=== PATIENT | female | born 1940 | race Caucasian/White ===

== ENCOUNTER 2017-09-04 16:09 | Emergency (ER) | payer MEDICARE ==
[~2017-09-04] VITALS: Ht 157.5 cm; Wt 77.0 kg
[2017-09-04 16:12] VITALS: BP 138/65; PULSE 67; RESP 16; TEMP 98.3; O2SAT 95
[2017-09-04] MEDS ORDERED: SODIUM CHLOR 0.9% 1000 ML INJ 1,000 ML IV SCH (16:34)
[2017-09-04 16:38] VITALS: RESP 16; O2SAT 97
[2017-09-04] MEDS ORDERED: ONDANSETRON HCL 4 MG/2 ML VIAL IVP ONE (16:45)
[2017-09-04] MEDS ORDERED: SODIUM CHLORIDE 0.9% FLUSH 10 ML FLUSH IV FLUSH PRN (16:45)
[2017-09-04] MEDS ORDERED: cefTRIAXone INJ 1,000 MG in SODIUM CHLORIDE 0.9% INJ 100 ML IV ONE (16:45)
--- NOTE | 2017-09-04 16:45 | PD ---
HPI Chief Complaint: Allergic/Adverse Reaction Time Seen by Provider: 16:34 Travel History International Travel<30 days: No Contact w/Intl Traveler<30days: No Traveled to known affect area: No History of Present Illness HPI The patient 76 years old. She was diagnosed with urinary tract infection yesterday at a urgent care center. She was prescribed Macrobid and then went home and took it along with Pyridium and Diflucan. This morning she began vomiting and has vomited all day long. She believes it may be due to side effects or Macrobid for potentially the urinary tract infection. She's had no fever. She does have pain in the epigastrium which she attributes to recurrent vomiting. She reports typically [employer] works for her and that she called the urgent care office and they called in a prescription for Cipro and that she has available to her. PFSH Past Medical History Hx Anticoagulant Therapy: No Diabetes: No ?: Not Social History Tobacco Use: No Allergies-Medications (Allergen,Severity, Reaction): Coded Allergies: No Known Allergies (Unverified , 09/04/17) Reported Meds & Prescriptions Reported Meds & Active Scripts Active Phenergan (Promethazine HCl) 25 Mg Tablet 25 Mg PO Q6H PRN Reported Pyridium (Phenazopyridine HCl) 100 Mg Tab 100 Mg PO Q8H PRN Macrobid (Nitrofurantoin Monoh/Nitrofur Macro) 100 Mg Cap 100 Mg PO BID Estradiol 0.5 Mg Tab 0.5 Mg PO DAILY Celexa (Citalopram Hydrobromide) 20 Mg Tab 30 Mg PO DAILY Cipro (Ciprofloxacin HCl) 500 Mg Tab 500 Mg PO BID Review of Systems Except as stated in HPI: all other systems reviewed are Neg General / Constitutional: No: Fever Gastrointestinal: Positive: Nausea, Vomiting Physical Exam Narrative GENERAL: 76-year-old female well-nourished well-developed no acute distress SKIN: Warm and dry. HEAD: Atraumatic. Normocephalic. EYES: Pupils equal and round. No scleral icterus. No injection or drainage. ENT: No nasal bleeding or discharge. Mucous membranes pink and moist. NECK: Trachea midline. No JVD. CARDIOVASCULAR: Regular rate and rhythm. RESPIRATORY: No accessory muscle use. Clear to auscultation. Breath sounds equal bilaterally. GASTROINTESTINAL: Abdomen soft, non-tender, nondistended. Hepatic and splenic margins not palpable. MUSCULOSKELETAL: Extremities without clubbing, cyanosis, or edema. No obvious deformities. NEUROLOGICAL: Awake and alert. No obvious cranial nerve deficits. Motor grossly within normal limits. Five out of 5 muscle strength in the arms and legs. Normal speech. PSYCHIATRIC: Appropriate mood and affect; insight and judgment normal. Data Data Last Documented VS Vital Signs Date Time Temp Pulse Resp B/P (MAP) Pulse Ox O2 Delivery O2 Flow Rate FiO2 09/04/17 16:38 64 16 96 Room Air 09/04/17 16:12 98.3 138/65 (89) Vital signs reviewed Orders Orders Iv Access Insert/Monitor (09/04/17 16:34) Ecg Monitoring (09/04/17 16:34) Oximetry (09/04/17 16:34) Ondansetron Inj (Zofran Inj) (09/04/17 16:45) Sodium Chlor 0.9% 1000 Ml Inj (Ns 1000 M (09/04/17 16:34) Sodium Chloride 0.9% Flush (Ns Flush) (09/04/17 16:45) Ceftriaxone Inj (Rocephin Inj) (09/04/17 16:45) Ed Discharge Order (09/04/17 17:21) MDM Medical Decision Making Medical Screen Exam Complete: Yes Emergency Medical Condition: Yes Medical Record Reviewed: Yes Differential Diagnosis Constipation, Gastritis, Acute Cholecystitis, Biliary Colic, Pancreatitis, BROOKS , Hepatitis, Bowel Obstruction, Cystitis, Mesenteric Ischemia, AAA, Appendicitis , Renal Stone/Hydronephrosis, GERD, perforated viscous Narrative Course Patient will receive IV fluids and antiemetics and a dose of Rocephin. Discharge home afterward with plan for follow up with pmd. Pt agreeable with plan and reports feeling much better at time of reassessment at 1730. Diagnosis Primary Impression: UTI (urinary tract infection) Qualified Codes: N30.00 - Acute cystitis without hematuria Additional Impression: Nausea & vomiting Qualified Codes: R11.2 - Nausea with vomiting, unspecified Referrals: Primary Care Physician 2 days Med/Other Pt SpecificInfo: Prescription(s) given Scripts Promethazine (Phenergan) 25 Mg Tablet 25 MG PO Q6H Y for NAUSEA OR VOMITING, #10 TAB 0 Refills Prov: Flakito Jenkins MD 09/04/17 Disposition: 01 DISCHARGE HOME Condition: Stable Flakito Jenkins MD Sep 04, 2017 16:45
[2017-09-04] MEDS ORDERED: CIPR-9 PO (16:46)
[2017-09-04] MEDS ORDERED: ESTR0.5T PO (16:46)
[2017-09-04] MEDS ORDERED: MACR100C2 PO (16:46)
[2017-09-04] MEDS ORDERED: CELE20TA PO (16:46)
[2017-09-04] MEDS ORDERED: PHEN0.4T PO (16:46)
[2017-09-04] MEDS ORDERED: PROM25TA10 PO (16:57)
[2017-09-04 18:05] VITALS: BP 131/70
== END 2017-09-04 18:39 | disposition home or self-care (01) ==
LOC: PHED 16:09 → EDBD 16:09 → PHED 18:39
DX: N30.00 Acute cystitis without hematuria (principal)
CPT/HCPCS: 96365; 96375; 99284; J0696; J2405; J7030

== ENCOUNTER 2018-09-23 08:08 | Observation (INO) ==
[2018-09-23] MEDS ORDERED: Sod Chloride 0.9% Inj 1,000 ML IV.SIG ONE (08:39)
[2018-09-23 08:59] LABS: Baso % (Auto) 0.8 % (0.0-2.0); Eos % (Auto) 0.6 % (0.0-4.0); Hematocrit 44.4 % (35.0-46.0); Hemoglobin 14.9 gm/dL (11.6-15.3); Lymph # (Auto) 1.9 th/mm3 (1.0-4.8); Lymph % (Auto) 31.5 % (9.0-44.0); Mean Corpuscular HGB Conc 33.5 % (32.0-36.0); Mean Corpuscular Hemoglobin 28.4 pg (27.0-34.0); Mean Corpuscular Volume 84.8 fL (80.0-100.0); Mean Platelet Volume 8.4 fL (7.0-11.0); Mono # (Auto) 0.2 th/mm3 (0.0-0.9); Mono % (Auto) 3.9 % (0.0-8.0); Neut % (Auto) 63.2 % (16.0-70.0); Platelet Count 204 th/mm3 (150-450); Red Blood Count 5.24 mil/mm3 (4.00-5.30); Red Cell Distribution Width 13.3 % (11.6-17.2); White Blood Count 6.1 th/mm3 (4.0-11.0)
--- NOTE | 2018-09-23 09:04 | XR ---
EXAM DATE: 09/23/2018 9:02 AM EST AGE/SEX: 77 years / Female INDICATIONS: . Vertigo, acid reflux with chest pain CLINICAL DATA: This is the patient's initial encounter. Patient reports that signs and symptoms have been present for 2 weeks and indicates a pain score of 6/10. MEDICAL/SURGICAL HISTORY: None. None. COMPARISON: No prior exams available for comparison. FINDINGS: PA and lateral views of the chest demonstrate the lungs to be symmetrically aerated without evidence of mass, infiltrate or effusion. The cardiomediastinal contours are unremarkable. Osseous structures are intact. CONCLUSION: No acute intrathoracic disease. Electronically signed by: Ramo Ngo MD 09/23/2018 9:03 AM EST
[2018-09-23 09:08] LABS: Chloride 105 meq/L (98-107); Potassium 3.4 meq/L (3.5-5.1); Sodium 140 meq/L (136-145)
[2018-09-23 09:11] LABS: Anion Gap 8 meq/L (5-15); Calcium 8.7 mg/dL (8.5-10.1); Carbon Dioxide 26.6 meq/L (21.0-32.0); Glucose,Random 106 mg/dL (74-106)
[2018-09-23 09:12] LABS: Blood Urea Nitrogen 31 mg/dL (7-18)
[2018-09-23 09:15] LABS: Glomerular Filtration Rate 40 mL/min (>89)
[2018-09-23] MEDS ORDERED: Sodium Chlor 0.9% Inj 500 ML IV.SIG SCH (10:00)
--- NOTE | 2018-09-23 10:34 | CT ---
EXAM DATE: 09/23/2018 10:31 AM EST AGE/SEX: 77 years / Female INDICATIONS: Dizziness CLINICAL DATA: This is the patient's initial encounter. Patient reports that signs and symptoms have been present for 1 week and indicates a pain score of 3/10. MEDICAL/SURGICAL HISTORY: Hypertension. Hysterectomy. Cholecystectomy. RADIATION DOSE: 52.90 CTDI (mGy) COMPARISON: No prior exams available for comparison. TECHNIQUE: CT of the head without contrast. Using automated exposure control and adjustment of the mA and/or kV according to patient size, radiation dose was kept as low as reasonably achievable to ob tain optimal diagnostic quality images. DICOM format image data is available electronically for revi ew and comparison. FINDINGS: Cerebrum: The ventricles are normal for age. No evidence of midline shift, mass lesion, hemorrhage or acute infarction. No extraaxial fluid collections are seen. Posterior Fossa: The cerebellum and brainstem are intact. The 4th ventricle is midline. The cerebe llopontine angle is unremarkable. Extracranial: The visualized portion of the orbits is intact. Skull: The calvaria is intact. No evidence of skull fracture. CONCLUSION: 1. Unremarkable exam for patient's age. . Electronically signed by: Ramo Ngo MD 09/23/2018 10:33 AM EST
[2018-09-23] MEDS ORDERED: Acetaminophen 325 MG Tablet PO PRN (12:18)
[2018-09-23] MEDS ORDERED: Bisacodyl 10 MG Supp RECTAL PRN (12:18)
[2018-09-23] MEDS ORDERED: Sod Chloride 0.9% Inj 1,000 ML IV.CONT SCH (12:30)
[2018-09-23] MEDS ORDERED: CHLORTHALIDONE 50 MG PO SCH (12:30)
--- NOTE | 2018-09-23 12:30 | ED ---
HPI General Chief Complaint: Dizziness Stated Complaint: possible vertigo/dizziness x 1.5 week/nausea Time Seen by Provider: 09/23/18 08:21 Source: patient Mode of arrival: ambulatory Limitations: no limitations History of Present Illness HPI Narrative: Patient is a 77-year-old female, past medical history significant for hypertension, depression with recent change in her antidepressant medications, and vertigo who presents with complaint of worsening vertigo. She states that this episode of dizziness has been going on for the last 2 weeks and occurs when her head stays still and when she turns it. She has had nausea and vomiting associated with it and this morning began to have some palpitations as well. No chest pain or shortness of breath. No fever nor chills. No diarrhea. No abdominal pain. She states that in some ways this feels similar to previous vertigo episodes but does feel very different as well. No changes in speech, swallowing, visual field deficits. No numbness nor weakness. No difficulty walking. complaint: Reports dizziness Onset (ago): week(s) Timing: sudden onset Description: Reports "room spinning" History of similar episodes: Yes History of trauma: No Severity: moderate Relieving factors: nothing Exacerbating factors: nothing Associated symptoms: Reports nausea Related Data Home Medications Medication Instructions Recorded Confirmed chlorthalidone 50 mg PO DAILY 09/23/18 09/23/18 estradiol 0.5 mg PO DAILY 09/23/18 09/23/18 losartan 100 mg PO DAILY 09/23/18 09/23/18 Allergies Allergy/AdvReac Type Severity Reaction Status Date / Time No Known Allergies Allergy Unverified 09/23/18 08:35 Review of Systems ROS: all other systems reviewed are negative [facility] Medical History Medical History Depression (Acute) Fibromyalgia (Acute) Hx of hysterectomy (Acute) Hypertension (Acute) Surgical History Surgical History History of lumpectomy of right breast (Acute) Hx of cholecystectomy (Acute) Hx of vein stripping (Acute) Social History Social History Substance History: No History of Abuse Smoking Status: Former smoker How Often Do You Have a Drink Containing Alcohol: Never Recent Out of Country Travel within the Last 8 Weeks: No Immunization History Tetanus Immunization: Unsure Exam Narrative Exam Narrative: GENERAL: Well-appearing female though she appears nauseated SKIN: Focused skin assessment warm/dry. HEAD: Atraumatic. Normocephalic. EYES: Pupils equal and round. No scleral icterus. No injection or drainage. ENT: No nasal bleeding or discharge. Mucous membranes pink and moist. NECK: Trachea midline. No JVD. CARDIOVASCULAR: Regular rate and rhythm. No murmur appreciated. Intact and equal peripheral pulses. RESPIRATORY: No accessory muscle use. Clear to auscultation. Breath sounds equal bilaterally. GASTROINTESTINAL: Abdomen soft, non-tender, nondistended. Hepatic and splenic margins not palpable. MUSCULOSKELETAL: No obvious deformities. No clubbing. No cyanosis. No edema. NEUROLOGICAL: Awake and alert. No obvious cranial nerve deficits. Motor within normal limits. Normal sensation and no visual field deficits. Very faint/ slight dysmetria. Normal speech. PSYCHIATRIC: Appropriate mood and affect; insight and judgment normal. Course Initial Documented Vital Signs Temperature 97.9 F 09/23/18 08:17 Pulse Rate 67 09/23/18 08:17 Respiratory Rate 16 09/23/18 08:17 Blood Pressure 137/83 09/23/18 08:17 Pulse Oximetry 97 09/23/18 08:17 Last Documented Vital Signs Temperature 97.9 F 09/23/18 08:17 Pulse Rate 60 09/23/18 11:11 Respiratory Rate 16 09/23/18 11:11 Blood Pressure 125/70 09/23/18 11:11 Pulse Oximetry 97 09/23/18 11:11 Medical Decision Making [facility] Narrative Medical decision making narrative: Patient is a 77-year-old female who presents complaint of vertigo that is different from her previous episodes and sometimes occurs at rest and sometimes with head motion. She has faint dysmetria on exam. She is otherwise neurologically intact. Symptom onset was approximately [address] head does not reveal any acute intracranial abnormalities. She was given Antivert with slight attenuation and symptoms but states they are very much still persistent. I discussed this with Dr. Stevens, hospitalist on- call, who agreed to an admission for further evaluation and management. Medical Screen Exam Complete: Yes Emergency Medical Condition: Yes Differential Diagnosis Differential Diagnosis: Differential diagnosis includes but is not limited to BPPV, acute coronary syndrome, dysrhythmia, electrolyte abnormality, anemia, medication side effect, TIA/CVA, vertebrobasilar insufficiency. Medical Records Medical records reviewed: Yes I reviewed the patient's medical records. Lab Data Lab results reviewed: Yes I reviewed the patient's lab results. Result diagrams: 09/23/18 08:45 09/23/18 08:45 Lab Results 09/23/18 09/23/18 09/23/18 Range/Units 08:45 08:45 08:45 CBC w Diff Auto diff final WBC 6.1 (4.0-11.0) th/mm3 RBC 5.24 (4.00-5.30) mil/mm3 Hgb 14.9 (11.6-15.3) gm/dL Hct 44.4 (35.0-46.0) % MCV 84.8 (80.0-100.0) fL MCH 28.4 (27.0-34.0) pg MCHC 33.5 (32.0-36.0) % RDW 13.3 (11.6-17.2) % Plt Count 204 (150-450) th/mm3 MPV 8.4 (7.0-11.0) fL Neut % (Auto) 63.2 (16.0-70.0) % Lymph % (Auto) 31.5 (9.0-44.0) % [place] % (Auto) 3.9 (0.0-8.0) % Eos % (Auto) 0.6 (0.0-4.0) % Baso % (Auto) 0.8 (0.0-2.0) % Neut # (Auto) 4.0 (1.8-7.7) th/mm3 Lymph # (Auto) 1.9 (1.0-4.8) th/mm3 [place] # (Auto) 0.2 (0.0-0.9) th/mm3 Eos # (Auto) 0.0 (0.0-0.4) th/mm3 Baso # (Auto) 0.0 (0.0-0.2) th/mm3 WBC Differential . Differential Comment . Sodium 140 (136-145) meq/L Potassium 3.4 L (3.5-5.1) meq/L Chloride 105 (98-107) meq/L Carbon Dioxide 26.6 (21.0-32.0) meq/L Anion Gap 8 (5-15) meq/L BUN 31 H (7-18) mg/dL Creatinine 1.30 H (0.50-1.00) mg/dL Estimated GFR 40 L (>89) mL/min Random Glucose 106 (74-106) mg/dL Calcium 8.7 (8.5-10.1) mg/dL Troponin I Less than 0.02 L (0.02-0.05) ng/mL TSH 2.940 (0.358-3.740) uIU/mL Imaging Data Attestation: I personally reviewed and interpreted this imaging study as follows : Radiologist's impression: Chest X-Ray 09/23/18 08:39 CONCLUSION: No acute intrathoracic disease. Head CT 09/23/18 09:36 CONCLUSION: 1. Unremarkable exam for patient's age. . ECG Data EKG Prior to Arrival: No Attestation: I personally reviewed and interpreted this ECG as follows: (Sinus bradycardia at a rate of 57 bpm. There is slight T wave inversion in lead III with diffuse T wave flattening but no other ST or T wave changes.) Discharge Plan Discharge Disposition Patient Disposition: 30 Still Patient Discharge Condition Condition: Stable Discharge Details Diagnosis: Dizziness Physicians Team ED Provider: Lisa Oliver Primary Care Provider: Janae Stevens Attending Provider: Khadar Stevens Discharge Interventions Interventions: Vital Signs Last Done: 09/23/18 11:11 Status ED Status: Admitted Observation Patient
[2018-09-23] MEDS: Heparin - SQ 10,000 UNITS/ML Vial SQ SCH ×2 (15:18→21:24)
[2018-09-23] MEDS: Estradiol 1 MG Tablet PO SCH (16:04)
[2018-09-23] MEDS ORDERED: CHLORTHALIDONE PO SCH (16:25)
--- NOTE | 2018-09-23 16:40 | P.HPIM ---
History of Present Illness Primary Care Physician: Janae Stevens MD, R3 Patient is a 77 year old female with history of vertigo, fibromyalgia, depression, and HTN presenting to the ED for complaints of worsening vertigo symptoms. Patient reports that her PMD recently started her on cymbalta ( stopping celexa) and that she had been on the new med for 2 weeks and noticed worsening vertigo symptoms including dizziness, nausea, and the sensation of emesis. She called her PMD who told her to stop the medication and go to the ED for evaluation. in the ED CTH negative. Negative orthostatic vitals. EKG with sinus bhargavi and no evidence of heart block. Patient was given antivert with some improvement and started on fluids at 75cc/hr. ROS (-) for vision, headache, hearing changes, slurred speech, facial droop, weakness on her body, tingling sensation, numbness, chest pain, palpitations, LOC. Patient has never taken medication for vertigo or used maneuvers to help symptoms " I just deal with it." Patient reports that the room was spinning around her, lasting for a few minutes. Symptoms aggravated by movement. No alleviating factors other that waiting it out. At its worst patient felt as if she would fall as she felt unsteady on her feet. No hearing loss. No brainstem symptoms endorsed by patient including double vision or visual loss. Diagnosis (1) Acute kidney injury: (2) HTN (hypertension): Review of Systems Review of Systems: all other systems reviewed are negative [facility] Medical History Medical History Depression (Acute) Fibromyalgia (Acute) Hx of hysterectomy (Acute) Hypertension (Acute) Surgical History Surgical History History of lumpectomy of right breast (Acute) Hx of cholecystectomy (Acute) Hx of vein stripping (Acute) Social History Social History Substance History: No History of Abuse Second Hand Smoke Exposure: No Smoking Status: Former smoker How Often Do You Have a Drink Containing Alcohol: Never Recent Out of Country Travel within the Last 8 Weeks: No Immunization History Tetanus Immunization: Unsure Medications and Allergies Allergies Allergy/AdvReac Type Severity Reaction Status Date / Time No Known Allergies Allergy Unverified 09/23/18 08:35 Home Medications Medication Instructions Recorded Confirmed Type chlorthalidone 50 mg PO DAILY 09/23/18 09/23/18 History estradiol 0.5 mg PO DAILY 09/23/18 09/23/18 History losartan 100 mg PO DAILY 09/23/18 09/23/18 History Active Medications: Active Medications Acetaminophen (Tylenol) 650 mg PO Q4H PRN PRN Reason: Temp > 100.4 Al Hydroxide/Mg Hydroxide (Milk Of Juan Manuel Liq) 30 ml PO Q12H PRN PRN Reason: Mild Constipation Bisacodyl (Dulcolax Supp) 10 mg RECTAL DAILY PRN PRN Reason: SEVERE CONSITIPATION Estradiol (Estrace) 0.5 mg PO DAILY [facility] Last Admin: 09/23/18 16:04 Dose: 0.5 mg Heparin Sodium (Porcine) (Heparin Inj) 5,000 units SQ Q8H [facility] Last Admin: 09/23/18 15:18 Dose: 5,000 units Hydrochlorothiazide (Hydrodiuril) 25 mg PO DAILY [facility] Sodium Chloride (Ns Inj) 1,000 mls @ 75 mls/hr IV.CONT .[id number] [facility] Last Admin: 09/23/18 15:19 Dose: 75 mls/hr Meclizine HCl (Antivert) 25 mg PO Q6H PRN PRN Reason: DIZZINESS Last Admin: 09/23/18 15:18 Dose: 25 mg Non-Formulary Drug ( Chlorthalidone 50 Mg ) 0 mg PO DAILY [facility] Last Admin: 09/23/18 16:08 Dose: Not Given Ondansetron HCl (Zofran Inj) 4 mg IV.PUSH Q6H PRN PRN Reason: NAUSEA OR VOMITING Senna/Docusate Sodium (Jeny-Colace) 1 tab PO BID [facility] Sennosides (Senokot) 17.2 mg PO Q12H PRN PRN Reason: Moderate Constipation Sodium Chloride (Ns Flush) 2 ml IV.FLUSH PRN PRN PRN Reason: FLUSH AFTER USING IV ACCESS Last Admin: 09/23/18 09:06 Dose: 2 ml Sodium Chloride (Ns Flush) 2 ml IV.FLUSH BID [facility] Sodium Chloride (Ns Flush) 2 ml IV.FLUSH PRN PRN PRN Reason: FLUSH AFTER USING IV ACCESS Physical Exam Vital signs: Last Vital Signs Temp 97.9 F 09/23/18 08:17 Pulse 66 09/23/18 12:35 Resp 18 09/23/18 12:35 BP 136/68 09/23/18 12:35 Pulse Ox 97 09/23/18 12:35 Intake & Output 09/21/18 09/22/18 09/23/18 09/24/18 06:59 06:59 06:59 06:59 Intake Total 1500 / 1500 Balance 1500 / 1500 Weight 80.1 kg gen: NAD heent: EOMMI, PERRLA cvs: s1/s2. no m/r/g resp: cta bilaterally gi: soft, non tender, non distended, no guarding, + bowel sounds neuro: V1-V3 intact. No droop. Fine nystagmus on lateral eye movement with provoking maneuver. NO eyelid droop. Results Labs CBC & Chem 7: 09/23/18 08:45 09/23/18 08:45 Imaging Impressions Chest X-Ray 09/23/18 08:39 CONCLUSION: No acute intrathoracic disease. Head CT 09/23/18 09:36 CONCLUSION: 1. Unremarkable exam for patient's age. . Caprini VTE Risk Assessment Caprini VTE Risk Assessment: No/Low Risk (score <= 1) Caprini Risk Assessment Model: Point Value = 1 Point Value = 2 Point Value = 3 Point Value = 5 Age 41-60 Minor surgery BMI > 25 kg/m2 Swollen legs Varicose veins or History of unexplained or recurrent spontaneous Oral contraceptives or hormone replacement Sepsis (< 1 month) Serious lung disease, including pneumonia (< 1 month) Abnormal pulmonary function Acute myocardial infarction Congestive heart failure (< 1 month) History of inflammatory bowel disease Medical patient at bed rest Age 61-74 Arthroscopic surgery Major open surgery (> 45 min) Laparoscopic surgery (> 45 min) Malignancy Confined to bed (> 72 hours) Immobilizing plaster cast Central venous access Age >= 75 History of VTE Family history of VTE Factor V Leiden Prothrombin [id number] Lupus anticoagulant Anticardiolipin antibodies Elevated serum homocysteine Heparin-induced thrombocytopenia Other congenital or acquired thrombophilia Stroke (< 1 month) Elective arthroplasty Hip, pelvis, or leg fracture Acute spinal cord injury (< 1 month) Prophylaxis Regimen: Total Risk Factor Score Risk Level Prophylaxis Regimen 0-1 Low Early ambulation 2 Moderate Order ONE of the following: *Sequential Compression Device (SCD) *Heparin 5000 units SQ BID 3-4 Higher Order ONE of the following medications: *Heparin 5000 units SQ TID *Enoxaparin/Lovenox 40 mg SQ daily (WT < 150 kg, CrCl > 30 mL/min) *Enoxaparin/Lovenox 30 mg SQ daily (WT < 150 kg, CrCl > 10-29 mL/min) *Enoxaparin/Lovenox 30 mg SQ BID (WT < 150 kg, CrCl > 30 mL/min) AND/OR *Sequential Compression Device (SCD) 5 or more Highest Order ONE of the following medications: *Heparin 5000 units SQ TID (Preferred with Epidurals) *Enoxaparin/Lovenox 40 mg SQ daily (WT < 150 kg, CrCl > 30 mL/min) *Enoxaparin/Lovenox 30 mg SQ daily (WT < 150 kg, CrCl > 10-29 mL/min) *Enoxaparin/Lovenox 30 mg SQ BID (WT < 150 kg, CrCl > 30 mL/min) AND *Sequential Compression Device (SCD) Assessment and Plan (1) Acute kidney injury: Code(s): N17.9 - Acute kidney failure, unspecified Status: Acute (2) HTN (hypertension): Code(s): I10 - Essential (primary) hypertension Status: Acute Plan Neurology/ENT: Vertigo - I suspect this patient's dizziness may have been exacerbated by a recent medication change to cymbalata which can cause dizziness. Will discontinue her cymbalta on discharge. - daria hallpike maneuver performed and appeared to provoke symptoms. concerning for bppv as patient with nystagmus on provoking maneuvers. - patient educated and shown how to perform the eply maneuver inpatient - mri and mra brain w/ contrast to r/o flow limiting stenosis - zofran prn nausea - consider neurology eval based on imaging results. renal: acute kidney injury - navdeep in setting of nausea and reduced PO intake due to dizziness and illness - IVF and repeat chem 8 in am - supplement K code: fc dvt ppx heparin diet dispo; obs H&P: Quality VTE Deep Vein Thrombosis/Pulmonary Embolism Present on Admission: No
[2018-09-23] MEDS: hydroCHLOROthiazide 25 MG Tablet PO SCH (17:39)
[2018-09-23] MEDS: Senna/Docusate Sodium 8.6/50 MG Tablet PO SCH (21:24)
[2018-09-24] MEDS: Heparin - SQ 10,000 UNITS/ML Vial SQ SCH ×2 (05:43→18:40)
[2018-09-24 08:32] LABS: Baso # (Auto) 0.1 th/mm3 (0.0-0.2); Baso % (Auto) 1.6 % (0.0-2.0); Eos # (Auto) 0.1 th/mm3 (0.0-0.4); Eos % (Auto) 1.4 % (0.0-4.0); Hematocrit 38.8 % (35.0-46.0); Lymph # (Auto) 2.8 th/mm3 (1.0-4.8); Lymph % (Auto) 57.3 % (9.0-44.0); Mean Corpuscular HGB Conc 33.6 % (32.0-36.0); Mean Corpuscular Hemoglobin 28.7 pg (27.0-34.0); Mean Corpuscular Volume 85.6 fL (80.0-100.0); Mono # (Auto) 0.3 th/mm3 (0.0-0.9); Mono % (Auto) 5.3 % (0.0-8.0); Neut # (Auto) 1.7 th/mm3 (1.8-7.7); Neut % (Auto) 34.4 % (16.0-70.0); Platelet Count 162 th/mm3 (150-450); Red Blood Count 4.53 mil/mm3 (4.00-5.30); Red Cell Distribution Width 13.2 % (11.6-17.2)
[2018-09-24] MEDS: Senna/Docusate Sodium 8.6/50 MG Tablet PO SCH (08:42)
[2018-09-24] MEDS: hydroCHLOROthiazide 25 MG Tablet PO SCH (08:42)
[2018-09-24] MEDS: Estradiol 1 MG Tablet PO SCH (08:42)
[2018-09-24 08:53] LABS: Potassium 3.4 meq/L (3.5-5.1)
[2018-09-24 08:56] LABS: Carbon Dioxide 26.5 meq/L (21.0-32.0)
[2018-09-24 09:31] VITALS: RESP 17; O2SAT 97
[2018-09-24] MEDS ORDERED: Gadobutrol PF 10 MMOL/10 ML Vial (for RAD) IV.SIG ONE (11:12)
--- NOTE | 2018-09-24 12:06 | MR ---
EXAM DATE: 09/24/2018 12:00 PM EST AGE/SEX: 77 years / Female INDICATIONS: Vertigo. CLINICAL DATA: This is the patient's initial encounter. Patient reports that signs and symptoms have been present for 2 days and indicates a pain score of 0/10. MEDICAL/SURGICAL HISTORY: Carcinoma, breast. Hypertension. Cholecystectomy. Hysterectomy. Rig ht breast lumpectomy. COMPARISON: . TECHNIQUE: 10cc ml Gadavist (gadobutrol) contrast infused MRA (single exam dose) of the extracrania l circulation was performed using a neurovascular coil. Postprocessing was performed, including rota ting sub-volume maximum intensity projections of each carotid artery, rotating full-volume maximum in tensity projections of both carotid arteries, sagittal and coronal sliding thin-slab reformations of each carotid artery, and left oblique sliding thin-slab reformation through the aortic arch to includ e the origin of the arch branch vessels. FINDINGS: Aortic Arch : There is a three-vessel origin of the great vessels from the aorta. No evidence of o stial narrowing. Right Carotid : The common carotid artery is intact. The carotid bulb has a normal configuration wi thout ulceration or narrowing. The internal carotid artery lumen is smooth without stenosis. The ex ternal carotid artery is intact. Left Carotid : The common carotid artery is intact. The carotid bulb has a normal configuration wit hout ulceration or narrowing. The internal carotid artery lumen is smooth without stenosis. The ext ernal carotid artery is intact. Vertebrals : The vertebral arteries have a symmetric diameter. No stenotic lesions are seen. CONCLUSION: 1. Unremarkable MRA of the carotids. Percent stenosis is calculated using the diameter of the stenotic region over the diameter of the nor mal distal internal carotid artery Electronically signed by: Ramo Ngo MD 09/24/2018 12:04 PM EST
--- NOTE | 2018-09-24 12:08 | MR ---
EXAM DATE: 09/24/2018 12:00 PM EST AGE/SEX: 77 years / Female INDICATIONS: Vertigo. CLINICAL DATA: This is the patient's initial encounter. Patient reports that signs and symptoms have been present for 2 days and indicates a pain score of 0/10. MEDICAL/SURGICAL HISTORY: Carcinoma, breast. Hypertension. Cholecystectomy. Hysterectomy. Rig ht breast lumpectomy. COMPARISON: [facility], CT HEAD W/O CONTRAST, 09/23/2018. . TECHNIQUE: Multiplanar, multisequence examination of the brain was performed without and with 10cc ml Gadavist (gadobutrol) contrast as a single exam dose. FINDINGS: Cerebrum: The ventricles are normal for age. There is bilateral cortical atrophy. No evidence of mid line shift, mass lesion, hemorrhage or acute infarction. No extraaxial fluid collections are seen. The pituitary gland and suprasellar cistern are normal in configuration. White Matter: Mild chronic white matter changes are noted bilaterally characteristic of ischemic dem yelinization. Posterior Fossa: The cerebellum and brainstem are intact. The 4th ventricle is midline. The cerebel lopontine angle is unremarkable. The cerebellar tonsils are normal in position. Diffusion Imaging: No focal areas of restricted diffusion are seen. No evidence of acute infarction . Extracranial: The visualized portions of the orbits and paranasal sinuses are unremarkable. Post Contrast: No abnormal areas of parenchymal or dural enhancement. No evidence of blood-brain ba rrier breakdown. These findings appear to correlate with the recent CT scan of the brain. CONCLUSION: 1. Bilateral cortical atrophy and chronic white matter changes. 2. No acute intracranial pathology. Electronically signed by: Ramo Ngo MD 09/24/2018 12:06 PM EST
[2018-09-24 12:14] VITALS: BP 119/59; PULSE 63; TEMP 96.6
--- NOTE | 2018-09-24 13:00 | ECG ---
Date Performed: 09/23/2018 Time Performed: 09:05:21 PTAGE: 77 years EKG: SINUS BRADYCARDIA NONSPECIFIC T-WAVE ABNORMALITY BORDERLINE ECG NO PREVIOUS TRACING DOCTOR: Bruce Abbott Interpretating Date/Time 09/24/2018 12:58:07
--- NOTE | 2018-09-24 14:37 | P.DS ---
DS: Providers Date of admission: 09/23/18 12:13 Primary care physician: Janae Stevens MD, R3 DS: Diagnosis Discharge Diagnosis (1) Acute kidney injury: Status: Acute (2) HTN (hypertension): Status: Acute DS: Summary .While hospitalized the following treatments and services were provided. CTH negative. EKG with sinus bradycardia to 57 without evidence of heart blocks. MRA without evidence of abn. MRI brain was negative. Symptoms improved while inpatient and I suspect symptoms of underlying vertigo worsened by cymbalata aggravating her underlying vertigo. Eply maneuver was done with patient and she felt subjectively better using the maneuver. Otherwise no other clinical complaints patient feels better and wants to go home. Patient instructed to follow up PMD, stop cymbalta and use eply if needed. Time Spent with Patient Total time spent providing and/or coordinating discharge services: > 45 min While hospitalized the following treatments and services were provided. CTH negative. EKG with sinus bradycardia to 57 without evidence of heart blocks. MRA without evidence of abn. MRI brain was negative. Symptoms improved while inpatient and I suspect symptoms of underlying vertigo worsened by cymbalata aggravating her underlying vertigo. Eply maneuver was done with patient and she felt subjectively better using the maneuver. Otherwise no other clinical complaints patient feels better and wants to go home. Patient instructed to follow up PMD, stop cymbalta and use eply if needed. Quality: VTE Deep Vein Thrombosis/Pulmonary Embolism Present on Admission: No Exam Narrative Exam Narrative: gen: nad cvs: s1/s2 resp: cta bilaterally gi: soft, non tendeer, non distended, no guarding or rebound ext: no edema neuro: no facial droop, sensation intact. power 5/5 throughout. no visible nystagmus. Results Labs on day of discharge: Labs from last 24 hours 09/24/18 09/24/18 06:31 06:31 CBC w Diff Auto diff final WBC 5.0 RBC 4.53 Hgb 13.0 Hct 38.8 MCV 85.6 MCH 28.7 MCHC 33.6 RDW 13.2 Plt Count 162 MPV 9.0 Neut % (Auto) 34.4 Lymph % (Auto) 57.3 H [place] % (Auto) 5.3 Eos % (Auto) 1.4 Baso % (Auto) 1.6 Neut # (Auto) 1.7 L Lymph # (Auto) 2.8 [place] # (Auto) 0.3 Eos # (Auto) 0.1 Baso # (Auto) 0.1 WBC Differential . Differential Comment . Sodium 143 Potassium 3.4 L Chloride 107 Carbon Dioxide 26.5 Anion Gap 10 BUN 22 H Creatinine 1.20 H Estimated GFR 44 L Random Glucose 83 Calcium 8.0 L Impressions ITS Impressions Chest X-Ray 09/23/18 08:39 CONCLUSION: No acute intrathoracic disease. Head CT 09/23/18 09:36 CONCLUSION: 1. Unremarkable exam for patient's age. . Head MRI 09/24/18 00:00 CONCLUSION: 1. Bilateral cortical atrophy and chronic white matter changes. 2. No acute intracranial pathology. Neck MRA 09/24/18 00:00 CONCLUSION: 1. Unremarkable MRA of the carotids. Percent stenosis is calculated using the diameter of the stenotic region over the diameter of the normal distal internal carotid artery Discharge Plan Discharge Disposition Patient Disposition: 01 Discharge Home Discharge Condition Condition: Stable Discharge Order Discharge Orders: Discharge Order (Routine); Ordered 09/24/18 Ordered By: Khadar Stevens Discharge Details Anticipated Discharge Date: 09/24/18 Diagnosis: Dizziness Physicians Team ED Provider: Lisa Oliver Primary Care Provider: Janae Stevens Attending Provider: Khadar Stevens Rxs /Orders / Referrals /Forms Prescriptions: Continue chlorthalidone 50 mg Tablet 50 mg PO DAILY RF: 0 estradiol 0.5 mg Tablet 0.5 mg PO DAILY RF: 0 losartan 100 mg Tablet 100 mg PO DAILY RF: 0 Referrals: Janae Stevens MD, R3 [Primary Care Provider] - See Instructions Rakesh Lee MD [Family Provider] - See Instructions Discharge Instructions Patient Printed Instructions: Vertigo (DC), Near Syncope (GEN) Discharge Interventions Interventions: Discharge Planning - Case Management Last Done: 09/24/18 13:31 Status ED Status: Left Department
== END 2018-09-24 15:14 | disposition home or self-care (01) ==
LOC: PHED 08:08 → PHEDA 08:08 → PH3 13:40
PROVIDERS: ADMIT Internal Medicine; ATTEND Internal Medicine